=== PATIENT | male | born 1935 | race Two or more races ===

== ENCOUNTER 2020-03-11 13:07 | Inpatient (IN) | payer OTHER, MEDICAID ==
[~2020-03-11] VITALS: Ht 157.5 cm; Wt 68.4 kg
[~2020-03-11 13:07] MED LIST: GABA100C9; GLIP5TAB12; METF-372; OMEP5TAB; SIMV20TA90; TRAM50TA2; [UNRECOGNIZED DRUG - CODE]
[2020-03-11 14:51] LABS: Basophils # (auto) 0 10 ^3/uL (0-0.2); Basophils % (auto) 0.6 % (0.0-2.0); Eosinophils # (auto) 0.1 10 ^3/uL (0-0.8); Eosinophils % (auto) 1.2 % (0.0-7.0); Hematocrit 41.5 % (41.0-53.0); Hemoglobin 13.9 g/dL (13.5-17.5); Lymphocytes # (auto) 0.9 10 ^3/uL (0.4-5.4); Lymphocytes % (auto) 22.1 % (10.0-50.0); Mean Corpuscular Hemoglobin 30.6 pg (28.0-32.0); Mean Corpuscular Hgb Conc. 33.4 g/dL (32.0-36.0); Mean Corpuscular Volume 91.4 fL (80.0-100.0); Monocytes # (auto) 0.3 10 ^3/uL (0-1.3); Monocytes % (auto) 8.2 % (0.0-12.0); Neutrophils # (auto) 2.8 10 ^3/uL (1.6-8.6); Neutrophils % (auto) 67.9 % (37.0-80.0); Nucleated Red Blood Cells % 0.1 %; Platelet Count (auto) 209 10^3/uL (140-450); Red Blood Cells 4.54 10^6/uL (4.5-5.90); Red Cell Distribution Width 13.6 % (11.8-14.3); White Blood Cell 4.1 10^3/uL (4.4-10.8)
[2020-03-11 15:10] LABS: Calcium 9.8 mg/dL (8.5-10.1); Chloride 103 mmol/L (98-107); Potassium 4.7 mmol/L (3.5-5.1); Sodium 137 mmol/L (136-145)
[2020-03-11 15:12] LABS: INR 0.99 (0.9-1.15); Partial Thromboplastin Time 24.9 sec (23.0-31.2)
[2020-03-11 15:13] LABS: Alanine Aminotransferase 23 U/L (16-61); Albumin 3.9 g/dL (3.4-5.0); Anion Gap 5 (5-15); Aspartate Aminotransferase 17 U/L (15-37); Blood Urea Nitrogen 20 mg/dL (7-18); Carbon Dioxide 29 mmol/L (21-32); GFR African American 51 mL/min; GFR Non-African American 42 mL/min; Glucose 286 mg/dL (74-106)
[2020-03-11 15:18] LABS: Alkaline Phosphatase 110 U/L (45-117); Bilirubin, Total 0.5 mg/dL (0.2-1.0); Total Protein 7.4 g/dL (6.4-8.2)
[2020-03-11] MEDS ORDERED: ACETAMINOPHEN 325 MG TAB PO PRN (20:45)
[2020-03-11] MEDS ORDERED: MORPHINE SULF INJ 2 MG/ML SYRINGE 1ML IV PRN (20:45)
[2020-03-11] MEDS ORDERED: ONDANSETRON HCL 4 MG/2 ML VIAL IV PRN (20:45)
[2020-03-11] MEDS ORDERED: NITROGLYCERIN 0.4 MG SL TAB SL PRN (20:45)
[2020-03-11] MEDS ORDERED: DEXTROSE (50%) 50ML SYRG IV PRN (20:45)
[2020-03-12 06:57] LABS: Basophils # (auto) 0 10 ^3/uL (0-0.2); Basophils % (auto) 0.7 % (0.0-2.0); Eosinophils # (auto) 0.1 10 ^3/uL (0-0.8); Eosinophils % (auto) 3.4 % (0.0-7.0); Hematocrit 41.7 % (41.0-53.0); Hemoglobin 13.8 g/dL (13.5-17.5); Lymphocytes # (auto) 1.5 10 ^3/uL (0.4-5.4); Lymphocytes % (auto) 37.1 % (10.0-50.0); Mean Corpuscular Hemoglobin 30.3 pg (28.0-32.0); Mean Corpuscular Hgb Conc. 33.1 g/dL (32.0-36.0); Mean Corpuscular Volume 91.6 fL (80.0-100.0); Monocytes # (auto) 0.4 10 ^3/uL (0-1.3); Monocytes % (auto) 10.7 % (0.0-12.0); Neutrophils % (auto) 48.1 % (37.0-80.0); Nucleated Red Blood Cells % 0.1 %; Platelet Count (auto) 212 10^3/uL (140-450); Red Blood Cells 4.55 10^6/uL (4.5-5.90); Red Cell Distribution Width 13.4 % (11.8-14.3); White Blood Cell 4.1 10^3/uL (4.4-10.8)
[2020-03-12] MEDS: ATORVASTATIN 20 MG TAB PO SCH ×2 (07:29→22:11)
[2020-03-12] MEDS: GABAPENTIN 100 MG CAP PO SCH ×3 (07:49→22:11)
[2020-03-12] MEDS: ACCU-CHEK COMFORT CURVE STRIP VI SCH ×5 (07:49→23:50)
[2020-03-12] MEDS ORDERED: ADENOSINE 53 MG in GIVE UN-DILUTED 0 ML IV STA (09:34)
[2020-03-12] MEDS: InsuLIN REG 1unit/0.01ml Soln (100units/ml) SC SCH ×5 (09:38→23:55)
[2020-03-12] MEDS: PANTOPRAZOLE 40 MG TAB PO SCH (09:47)
[2020-03-12] MEDS ORDERED: FAMOTIDINE 20 MG TAB PO SCH (10:00)
[2020-03-12] MEDS ORDERED: METOPROLOL TARTRATE 50 MG TAB PO ONE (11:45)
[2020-03-12] MEDS ORDERED: ASPirin-EC 81 mg tab PO ONE (11:45)
[2020-03-12 13:00] VITALS: BP 164/91
[2020-03-12] MEDS: METOPROLOL TARTRATE 50 MG TAB PO SCH (15:09)
[2020-03-12 16:00] VITALS: BP 121/65
[2020-03-12 16:30] VITALS: BP_SYST 110; BP_SYST 121; BP_DIAS 64; BP_DIAS 65
[2020-03-12 17:30] VITALS: BP 127/81
--- NOTE | 2020-03-12 17:45 | NUR ---
Telemetry admit from pacu overflow VESNA, AMIR admitted to Telemetry unit after SBAR received.Patient oriented to Heaven Jaramillo, primary RN, unit, room, bed, and unit policies regarding patient care and visiting hours. Patient now on continuous telemetry monitoring, tele box # 79 and telemetry reading on arrival to unit is sinus tach at 105. No s/s of distress or sob. Patient denies pain at this time. Updated on POC and instructed to call for assistance as needed. Bed locked in lowest position, side rails up x2, call light within reach. Will continue to monitor for changes.
--- NOTE | 2020-03-12 18:00 | NUR ---
Blood glucose at 53 Patient provided with 8oz of juice. Patient also eating dinner tray at this time. Hospitalist paged per protocol.
[2020-03-12] MEDS ORDERED: TAMS0.4C36 PO (18:26)
[2020-03-12] MEDS ORDERED: NAPR375T27 PO (18:26)
[2020-03-12] MEDS ORDERED: INSUINJ37 SC (18:26)
[2020-03-12] MEDS ORDERED: OMEP-434 PO (18:26)
[2020-03-12] MEDS ORDERED: GLIP10TA9 PO (18:26)
[2020-03-12] MEDS ORDERED: ATOR20TA50 PO (18:26)
[2020-03-12] MEDS ORDERED: METO25TA93 PO (18:26)
[2020-03-12] MEDS ORDERED: LISI2.5T47 PO (18:26)
[2020-03-12] MEDS ORDERED: ASPI81CH59 PO (18:26)
--- NOTE | 2020-03-12 19:20 | NUR ---
Blood glucose reassessed at 149 care endorsed to night patrol inspector RN
--- NOTE | 2020-03-12 19:30 | NUR ---
Opening Shift Note Assumed care of patient after receiving report from day RN. Patient is awake and alert with no S/S of distress/SOB or pain. Call light within reach, bed in lowest locked position x2 side rails for safety. Instructed on POC and to call for assist PRN, will continue to monitor for changes Q1hr and PRN.
[2020-03-12 21:00] VITALS: BP 89/51
[2020-03-12 22:30] VITALS: BP 94/52
--- NOTE | 2020-03-12 22:30 | NUR ---
BP reassessed 94/52, HR 105. Patient is sleeping at this time. Will continue to monitor and reassess.
[2020-03-13 05:00] VITALS: BP 98/52
[2020-03-13] MEDS: ACCU-CHEK COMFORT CURVE STRIP VI SCH ×3 (06:00→17:33)
[2020-03-13] MEDS: InsuLIN REG 1unit/0.01ml Soln (100units/ml) SC SCH ×3 (06:48→17:47)
--- NOTE | 2020-03-13 07:25 | NUR ---
OPENING NOTE Received report from NOC shift RN. Assumed care of patient, resting with eyes closed. No s/s of distress or SOB. Respirations are even/unlabored. Bed is locked in lowest position with side rails up X's 2 and call light is within reach of patient. Safety precautions in place. Will continue to monitor for changes.
[2020-03-13 09:11] LABS: Basophils # (auto) 0 10 ^3/uL (0-0.2); Basophils % (auto) 0.8 % (0.0-2.0); Eosinophils # (auto) 0.1 10 ^3/uL (0-0.8); Eosinophils % (auto) 3.3 % (0.0-7.0); Hematocrit 37.8 % (41.0-53.0); Hemoglobin 12.5 g/dL (13.5-17.5); Lymphocytes % (auto) 28.8 % (10.0-50.0); Mean Corpuscular Hemoglobin 30.4 pg (28.0-32.0); Mean Corpuscular Volume 92.2 fL (80.0-100.0); Monocytes # (auto) 0.4 10 ^3/uL (0-1.3); Monocytes % (auto) 10.7 % (0.0-12.0); Neutrophils % (auto) 56.4 % (37.0-80.0); Nucleated Red Blood Cells % 0.1 %; Platelet Count (auto) 188 10^3/uL (140-450); Red Cell Distribution Width 13.5 % (11.8-14.3); White Blood Cell 3.6 10^3/uL (4.4-10.8)
[2020-03-13] MEDS: PANTOPRAZOLE 40 MG TAB PO SCH (09:25)
[2020-03-13] MEDS: ASPirin-EC 81 mg tab PO SCH (09:25)
[2020-03-13] MEDS: METOPROLOL TARTRATE 50 MG TAB PO SCH (09:25)
[2020-03-13] MEDS: GABAPENTIN 100 MG CAP PO SCH ×2 (09:25→22:17)
[2020-03-13 09:35] LABS: Anion Gap 7 (5-15); Calcium 9.8 mg/dL (8.5-10.1); Carbon Dioxide 26 mmol/L (21-32); Chloride 106 mmol/L (98-107); GFR African American 47 mL/min; GFR Non-African American 39 mL/min; Glucose 206 mg/dL (74-106); Potassium 4.1 mmol/L (3.5-5.1); Sodium 139 mmol/L (136-145)
[2020-03-13 09:51] LABS: Blood Urea Nitrogen 34 mg/dL (7-18)
[2020-03-13 10:49] VITALS: BP 110/57
[2020-03-13 13:00] VITALS: BP 136/73
--- NOTE | 2020-03-13 14:11 | NUR ---
Assessment Patient is an 84-year-old male who is alert and oriented. Prior to admission patient reside with family and functioned with assistance. Per patient family helps him with his ADLs. Per patient he will return home to his prior living arrangements post discharge and family will transport him home at anytime on discharge day. Patient has a walker for home use. Informed patient he has the right to participate in all discharge planning. Patient does not have an advance directive. Patient has been provided with an advanced directive. Informed Patient verbalized understanding and agrees to discharge plan. Patient may benefit from home health safety evaluation. Addendum: 03/13/20 at 1412 by GALDINO BALL Amended: Links added.
[2020-03-13 17:00] VITALS: BP 126/66
--- NOTE | 2020-03-13 17:00 | NUR ---
UPDATE PATIENTS SONROMAN, ON POC AFTER PASSWORD VERIFIED.
[2020-03-13] MEDS: SODIUM CHLORIDE 0.9% 1,000 ML IV SCH (17:33)
[2020-03-13 19:35] VITALS: BP 118/60
--- NOTE | 2020-03-13 19:47 | NUR ---
paged hospitalist to notify of patient requesting medication for constipation. awaiting call back.
--- NOTE | 2020-03-13 19:52 | NUR ---
received order from froylan hospitalist: lactulose 30 mg q4 prn po and colace 100 mg po daily. read back and confirmed with hospitalist froylan. will carry out.
[2020-03-13] MEDS ORDERED: LACTULOSE 20Gm/30ML SOLN PO PRN (20:00)
[2020-03-13] MEDS ORDERED: LORazepam 2MG/ML-1ML VIAL IV PRN (22:15)
[2020-03-13] MEDS: ATORVASTATIN 20 MG TAB PO SCH (22:17)
[2020-03-13] MEDS: METOPROLOL TARTRATE 25 MG TAB PO SCH (22:17)
[2020-03-13] MEDS: ACETYLCYSTEINE ORAL for CIN 20%(200MG/ML) 4ML PO SCH (22:18)
[2020-03-13 23:00] LABS: Cholesterol 181 mg/dL (< 200)
[2020-03-13 23:03] LABS: HDL Cholesterol 38 mg/dL (40-59); LDL Cholesterol 116 mg/dL (< 100); Triglycerides 110 mg/dL (< 150)
[2020-03-14] MEDS: ACCU-CHEK COMFORT CURVE STRIP VI SCH ×4 (01:13→17:42)
[2020-03-14 02:29] LABS: Urine Bacteria NONE SEEN /hpf (None Seen); Urine Blood Negative /uL (Negative); Urine Specific Gravity 1.008 (1.001-1.035); Urine WBC <1 /hpf (0 - 3)
[2020-03-14 04:56] VITALS: BP 130/75
[2020-03-14] MEDS: SODIUM CHLORIDE 0.9% 1,000 ML IV SCH ×2 (05:11→17:42)
[2020-03-14] MEDS: InsuLIN REG 1unit/0.01ml Soln (100units/ml) SC SCH ×4 (06:00→17:45)
--- NOTE | 2020-03-14 07:30 | NUR ---
OPENING NOTE Received report from NOC shift RN. Assumed care of patient, awake and alert. No s/s of distress or SOB, patient denies pain at this time. Respirations are even/unlabored. Updated on POC and instructed to call for assistance as needed. Bed is locked in lowest position with side rails up X's 2 and call light is within reach of patient. Safety precautions in place. Will continue to monitor for changes.
[2020-03-14 07:57] LABS: INR 1.03 (0.9-1.15); Partial Thromboplastin Time 26.8 sec (23.0-31.2)
[2020-03-14 07:58] LABS: BUN/Creatinine Ratio 22.2; Calcium 9.6 mg/dL (8.5-10.1); Potassium 4.5 mmol/L (3.5-5.1)
--- NOTE | 2020-03-14 08:00 | NUR ---
PATIENT TAKEN TO POLISHING MACHINE OPERATOR FOR PROCEDURE NO DISTRESS NOTED.
[2020-03-14 08:05] LABS: Basophils # (auto) 0 10 ^3/uL (0-0.2); Basophils % (auto) 0.9 % (0.0-2.0); Eosinophils # (auto) 0.2 10 ^3/uL (0-0.8); Eosinophils % (auto) 4.3 % (0.0-7.0); Hematocrit 37.9 % (41.0-53.0); Hemoglobin 12.6 g/dL (13.5-17.5); Lymphocytes # (auto) 1.2 10 ^3/uL (0.4-5.4); Lymphocytes % (auto) 34.9 % (10.0-50.0); Mean Corpuscular Hemoglobin 30.5 pg (28.0-32.0); Mean Corpuscular Hgb Conc. 33.2 g/dL (32.0-36.0); Monocytes # (auto) 0.4 10 ^3/uL (0-1.3); Monocytes % (auto) 10.3 % (0.0-12.0); Neutrophils # (auto) 1.7 10 ^3/uL (1.6-8.6); Neutrophils % (auto) 49.6 % (37.0-80.0); Platelet Count (auto) 182 10^3/uL (140-450); Red Blood Cells 4.12 10^6/uL (4.5-5.90); Red Cell Distribution Width 13.5 % (11.8-14.3); White Blood Cell 3.5 10^3/uL (4.4-10.8)
[2020-03-14] MEDS ORDERED: HEPARIN SODIUM (PORCINE) 5000 UNITS/ML 1ML VIAL ONE (08:40)
[2020-03-14] MEDS ORDERED: ANGIOMAX 250 MG VIAL IV ONE (08:40)
[2020-03-14] MEDS ORDERED: MIDAZOLAM HCL 1MG/1ML-2 ML VIAL ONE (08:41)
[2020-03-14] MEDS ORDERED: VERAPAMIL 2.5MG/ML INJ 2ML VIAL IV ONE (08:41)
[2020-03-14] MEDS ORDERED: fentaNYL CITRATE 100 MCG/2 ML VL ONE (08:41)
[2020-03-14] MEDS ORDERED: SODIUM CHL 0.9% 0 ML ONE (08:41)
[2020-03-14] MEDS ORDERED: LIDOCAINE 2%HCL (LOCAL ANESTH.) INJ 20ML MDV ONE (08:50)
[2020-03-14 09:00] VITALS: BP 119/65
--- NOTE | 2020-03-14 09:55 | NUR ---
Patient brought to recovery via bed, report received from ESTEPHANIA Hill and Dax RN. Patient is AO x 4, denies pain at this time. NAD noted. Right groin site is benign, no s/s of bleeding or hematoma formation. Dressing is in place and is CDI, positive circulation, movement and sensation noted to BLE. Patient educated on post-procedure care instructions and flat time, verbalized understanding.
--- NOTE | 2020-03-14 10:10 | NUR ---
Patient is currently resting in bed with eyes closed. Respirations are even and unlabored. NAD noted. Right groin site remains unchanged.
--- NOTE | 2020-03-14 10:19 | NUR ---
Report given to primary RN, Heaven.
--- NOTE | 2020-03-14 10:20 | NUR ---
PATIENT RETURNED TO ROOM FROM INDUSTRIAL ENGINEERING INTERN REPORT RECEIVED FROM MARIANA BEST. NO DISTRESS NOTED. RIGHT GROIN SITE ASSESSED, NO BLEEDING, SWELLING OR REDNESS NOTED. AFFECTED LEG ACCESSED FOR POSITIVE TISSUE PERFUSION. PATIENT INSTRUCTED TO CALL FOR ASSISTANCE NEEDED AND IF THERE IS ANY BLEEDING OR SEVERE PAIN TO INCISION SITE. PATIENT VERBALIZED UNDERSTANDING. PATIENT OKAY TO SIT UP AT 1200. WILL CONTINUE TO MONITOR FOR ANY CHANGES.
--- NOTE | 2020-03-14 10:27 | NUR ---
Patient taken to telemetry unit via bed by this RN and ESTEPHANIA Hill. brick loader in place. NAD noted upon departure. Patient stable for transport. Primary RN, Heaven, present at bedside to receive patient and witness right groin site benign no s/s of bleeding or hematoma formation. Bed set in lowest locked position with side rails up x 2, call light is within reach and bed alarm set on for safety. Care endorsed to primary RN.
[2020-03-14] MEDS ORDERED: SERTRALINE HCL 50 MG TAB PO ONE (10:30)
[2020-03-14] MEDS: ASPirin-EC 81 mg tab PO SCH (11:34)
[2020-03-14] MEDS: GABAPENTIN 100 MG CAP PO SCH ×2 (11:34→21:53)
[2020-03-14] MEDS: DOCUSATE SOD 100 MG CAP PO SCH (11:34)
[2020-03-14] MEDS: PANTOPRAZOLE 40 MG TAB PO SCH (11:34)
[2020-03-14] MEDS: ACETYLCYSTEINE ORAL for CIN 20%(200MG/ML) 4ML PO SCH ×2 (11:34→21:58)
[2020-03-14] MEDS: METOPROLOL TARTRATE 25 MG TAB PO SCH ×2 (11:38→21:58)
--- NOTE | 2020-03-14 12:44 | NUR ---
PATIENT FALL PATIENT HAD A FALL. PATIENT WAS ATTEMPTING TO AMBULATE TO RESTROOM WITH FWW, RIGHT LEG WOULD NOT MOVE PER PATIENT. PATIENT DENIES ANY PAIN AND DENIES HITTING HIS HEAD. PATIENT HAS NO VISIBLE WOUNDS. PATIENT VITALS STABLE AT THIS TIME AND PEDAL PULSES PRESENT ON RIGHT LOWER EXTREMITY. DR MEYER AND PATIENTS TIMO NOTIFIED OF FALL. WILL CONTINUE TO MONITOR PATIENT CLOSELY.
[2020-03-14 13:00] VITALS: BP 119/60
[2020-03-14 17:00] VITALS: BP 110/50
[2020-03-14] MEDS ORDERED: TAMSULOSIN HYDROCHLORIDE 0.4 MG CAP PO SCH (18:00)
--- NOTE | 2020-03-14 19:30 | NUR ---
Opening Shift Note Assumed care of patient, awake and alert. No S/S of distress/SOB or pain. Instructed on POC and to call for assist PRN, will continue to monitor for changes Q1hr and PRN. Bed locked and in lowest position with call light in reach.
--- NOTE | 2020-03-14 19:49 | NUR ---
IV removal IV DC'd with clean sterile technique, catheter fully intact. Pressure dressing applied to site. Patient tolerated well. NOTE: Addendum: 03/14/20 at 1950 by BERNARDA GARCIA RN RN right hand IV removed
[2020-03-14] MEDS: ATORVASTATIN 20 MG TAB PO SCH (21:53)
[2020-03-14 22:00] VITALS: BP 112/54
[2020-03-15] MEDS: InsuLIN REG 1unit/0.01ml Soln (100units/ml) SC SCH ×3 (00:04→12:12)
[2020-03-15 05:36] VITALS: BP 102/53
[2020-03-15] MEDS: ACCU-CHEK COMFORT CURVE STRIP VI SCH ×3 (05:50→12:11)
[2020-03-15] MEDS: SODIUM CHLORIDE 0.9% 1,000 ML IV SCH (07:45)
--- NOTE | 2020-03-15 08:02 | NUR ---
Opening Shift Note Assumed care of patient, awake and alert sitting out of bed. No S/S of distress/SOB or pain. Instructed on POC and to call for assist PRN, will continue to monitor for changes Q1hr and PRN.
[2020-03-15 09:00] VITALS: BP 96/42
[2020-03-15] MEDS: ASPirin-EC 81 mg tab PO SCH (09:38)
[2020-03-15] MEDS: DOCUSATE SOD 100 MG CAP PO SCH (09:38)
[2020-03-15] MEDS: GABAPENTIN 100 MG CAP PO SCH (09:39)
[2020-03-15] MEDS: PANTOPRAZOLE 40 MG TAB PO SCH (09:39)
[2020-03-15] MEDS: ACETYLCYSTEINE ORAL for CIN 20%(200MG/ML) 4ML PO SCH (09:40)
[2020-03-15] MEDS: METOPROLOL TARTRATE 25 MG TAB PO SCH (09:41)
[2020-03-15] MEDS ORDERED: SERTRALINE HCL 50 MG TAB PO SCH (10:00)
[2020-03-15 11:42] VITALS: BP 96/42
[2020-03-15 12:51] LABS: BUN/Creatinine Ratio 19.1; Potassium 4.5 mmol/L (3.5-5.1)
--- NOTE | 2020-03-15 13:07 | NUR ---
Discharge instructions given as ordered. Encourage to follow up with PMD as instructed. All questions and concerns addressed. Patient verbalized understanding. Medication reconciliation form completed and copy given to patient. IV removed with catheter intact and pressure dressing applied. Telemetry unit returned to ICU. Patient taken to vehicle via wheelchair with all personal belongings, accompanied by staff. No distress noted at time of departure.
== END 2020-03-15 14:00 | disposition home or self-care (01) | DRG 287 ==
LOC: ER 13:07 → EDBD 13:07 → TELE 20:46 → TELE-WESTW 03-12 17:38
PROVIDERS: ADMIT Nurse Practitioner; ATTEND Internal Medicine
PROC: 4A023N7 Measurement of Cardiac Sampling and Pressure, Left Heart, Percutaneous Approach (ICD-10-PCS; principal; 2020-03-14)
PROC: B211YZZ Fluoroscopy of Multiple Coronary Arteries using Other Contrast (ICD-10-PCS; 2020-03-14)
PROC: B215YZZ Fluoroscopy of Left Heart using Other Contrast (ICD-10-PCS; 2020-03-14)
PROC: B213YZZ Fluoroscopy of Multiple Coronary Artery Bypass Grafts using Other Contrast (ICD-10-PCS; 2020-03-14)
PROC: B218YZZ Fluoroscopy of Left Internal Mammary Bypass Graft using Other Contrast (ICD-10-PCS; 2020-03-14)
DX: I25.10 Atherosclerotic heart disease of native coronary artery without angina pectoris (principal); I13.10 Hypertensive heart and chronic kidney disease without heart failure, with stage 1 through stage 4 chronic kidney disease, or unspecified chronic kidney disease; R55 Syncope and collapse; N18.30 Chronic kidney disease, stage 3 unspecified; E11.22 Type 2 diabetes mellitus with diabetic chronic kidney disease; F32.9 Major depressive disorder, single episode, unspecified; E78.5 Hyperlipidemia, unspecified; N40.0 Benign prostatic hyperplasia without lower urinary tract symptoms; Z79.82 Long term (current) use of aspirin; Z79.4 Long term (current) use of insulin; Z95.1 Presence of aortocoronary bypass graft; I25.2 Old myocardial infarction; Z79.899 Other long term (current) drug therapy; Z82.49 Family history of ischemic heart disease and other diseases of the circulatory system; Z86.73 Personal history of transient ischemic attack (TIA), and cerebral infarction without residual deficits; Z95.2 Presence of prosthetic heart valve; Z95.5 Presence of coronary angioplasty implant and graft; Z83.3 Family history of diabetes mellitus; E11.65 Type 2 diabetes mellitus with hyperglycemia
CPT/HCPCS: 36415; 70450; 70551; 71045; 78452; 80048; 80053; 80061; 81001; 82962; 83036; 83735; 84443; 84484; 85025; 85610; 85730; 86850; 86900; 86901; 93005; 93017; 93306; 93886; 99152; G0378; J0153; J1815; J2250

== ENCOUNTER → 2023-02-18 | Outpatient (CLI) | payer OTHER, MEDICAID ==
[~2023-02-18] MED LIST changes: +ASPI81CH59 PO; +ATOR20TA50 PO; +GABA-1308; -GABA100C9; +GLIP10TA9 PO; +INSUINJ37 SC; +LISI2.5T47 PO; +METO25TA93 PO; +NAPR-957 PO; +OMEP-434 PO; +SIMV-270; -SIMV20TA90; +TAMS0.4C36 PO
[2023-02-18 09:03] LABS: Basophils # (auto) 0 10 ^3/uL (0-0.2); Basophils % (auto) 0.8 % (0.0-2.0); Eosinophils # (auto) 0.1 10 ^3/uL (0-0.8); Eosinophils % (auto) 2.7 % (0.0-7.0); Hemoglobin 11.1 g/dL (13.5-17.5); Lymphocytes # (auto) 1.2 10 ^3/uL (0.4-5.4); Mean Corpuscular Hemoglobin 30.6 pg (28.0-32.0); Mean Corpuscular Hgb Conc. 32.7 g/dL (32.0-36.0); Mean Corpuscular Volume 93.6 fL (80.0-100.0); Monocytes # (auto) 0.4 10 ^3/uL (0-1.3); Monocytes % (auto) 8.1 % (0.0-12.0); Neutrophils # (auto) 3.4 10 ^3/uL (1.6-8.6); Neutrophils % (auto) 65.4 % (37.0-80.0); Nucleated Red Blood Cells % 0.1 %; Red Blood Cells 3.64 10^6/uL (4.5-5.90); Red Cell Distribution Width 13.7 % (11.8-14.3); White Blood Cell 5.2 10^3/uL (4.4-10.8)
[2023-02-18 09:12] LABS: Urine Bacteria FEW /hpf (None Seen); Urine Blood TRACE /uL (Negative); Urine Clarity HAZY (Clear); Urine Color Yellow (Yellow); Urine Hyaline Cast FEW /lpf (0 - 2); Urine Mucus FEW (None Seen); Urine Protein, UAD 1+ (Negative); Urine Specific Gravity 1.016 (1.001-1.035); Urine Urobilinogen Normal (Negative); Urine WBC 620 /hpf (0 - 3); Urine WBC Clumps PRESENT /hpf (None Seen); Urine pH 5.5 (5.0-8.0)
[2023-02-18 09:27] LABS: Alanine Aminotransferase 13 U/L (7-40); Albumin 4.6 g/dL (3.2-4.8); Alkaline Phosphatase 85 U/L (46-116); Anion Gap 6 (5-15); Aspartate Aminotransferase 19 U/L (13-40); BUN/Creatinine Ratio 12.4 (10.0-20.0); Blood Urea Nitrogen 25 mg/dL (9-23); Calcium 10.3 mg/dL (8.5-10.1); Carbon Dioxide 24 mmol/L (20-30); Chloride 109 mmol/L (98-107); Cholesterol 154 mg/dL (< 200); Creatine Kinase IFCC 100 U/L (46-171); Glucose 72 mg/dL (74-106); HDL Cholesterol 46 mg/dL (40-59); LDL Cholesterol 95 mg/dL (< 100); Sodium 139 mmol/L (136-145); Triglycerides 77 mg/dL (< 150)
[2023-02-18 09:28] LABS: Bilirubin, Total 0.6 mg/dL (0.2-1.0)
[2023-02-18 09:46] LABS: Erythrocyte Sedimentation Rate 15 mm/hr (0-20)
[2023-02-18 13:27] LABS: Potassium 5.7 mmol/L (3.5-5.1)
== END | disposition home or self-care (01) ==
LOC: LAB 08:41
PROVIDERS: ATTEND Internal Medicine
DX: I12.9 Hypertensive chronic kidney disease with stage 1 through stage 4 chronic kidney disease, or unspecified chronic kidney disease (principal); N18.30 Chronic kidney disease, stage 3 unspecified
CPT/HCPCS: 36415; 80053; 80061; 81001; 82550; 83036; 85025; 85652